=== PATIENT | female | born 1970 | race Caucasian/White ===

== ENCOUNTER 2017-12-15 20:20 | Emergency (ER) | payer MEDICAID, OTHER ==
[2017-12-15] MEDS: ACETAMINOPHEN 500 MG TAB PO (22:30)
[2017-12-15 22:37] LABS: URINE BLOOD (Dip) POC 1+ (NEGATIVE); URINE GLUCOSE (Dip) POC Negative (NEGATIVE); URINE KETONES (Dip) POC Negative (NEGATIVE); URINE LEUKOCYTE EST (Dip) POC Trace (NEGATIVE); URINE NITRITE (Dip) POC Negative (NEGATIVE); URINE TOTAL PROTEIN POC Negative (NEGATIVE)
[2017-12-15] MEDS: LIDOCAINE 1% (MDV) 10 ML INJ INJ (23:22)
[2017-12-15] MEDS: CEFTRIAXONE 1 GM INJ IM (23:22)
== END 2017-12-15 23:45 | disposition home or self-care (01) ==
LOC: FTE 20:20
DX: N39.0 Urinary tract infection, site not specified (principal); I10 Essential (primary) hypertension
CPT/HCPCS: 81003; 81025; 87086; 96372; 99284-25